=== PATIENT | male | born 2000 | race Caucasian/White ===

== ENCOUNTER 2020-04-17 11:19 | Emergency (ER) | payer BC, SELFPAY ==
[2020-04-17 11:20] VITALS: BP 136/74; PULSE 49; RESP 14; TEMP 36.2; O2SAT 100; BMI 18.6
--- NOTE | 2020-04-17 11:22 | CT_ITS ---
STUDY: CT BRAIN WITHOUT CONTRAST REASON FOR EXAM: Male, 20 years old. Head injury, passed out today hitting top of head. RADIATION DOSAGE (If Supplied By Facility): CTDIvol = ( 44.99 ) mGy, DLP = ( 779.24 ) mGycm TECHNIQUE: Transaxial CT imaging of the brain was performed without administration of intravenous contrast material. Individualized dose optimization techniques were used for this CT. COMPARISON: No relevant priors. FINDINGS: Normal soft tissue structures. Normal calvarium. Normal size ventricles and extra-axial spaces for the patient''s age. Normal white matter tracts of the cerebral hemispheres. The right temporal horn is more prominent in the left. Normal basal ganglia and thalami. Normal brainstem. I suspect a small subdural hematoma of the cerebellar tentorium more prominent on the right side. There are no findings of an acute ischemic infarction. Normal visualized paranasal sinuses. CT/Brain/Head without Contrast IMPRESSION: Findings suggestive of a small cerebellar tentorial subdural hematoma. Asymmetry of the temporal horns where the right temporal horn is slightly prominent as compared to the left side. Electronically Signed: Buddy Pedroza, at 12:35 EDT , Service support ,
--- NOTE | 2020-04-17 11:22 | RAD_ITS ---
STUDY: X-RAY CHEST REASON FOR EXAM: Male, 20 years old. SYNCOPAL EPISODE TODAY TECHNIQUE: PA and lateral views of the chest. COMPARISON: Comparison is made with prior study of September 20, 2016. FINDINGS: EKG electrodes are seen. Hyperinflation. Lungs are clear. There is no demonstrated pleural abnormality. Normal size heart. Normal mediastinum and minda. Normal visualized pulmonary arteries. Normal visualized aortic arch and descending thoracic aorta. Normal visualized thoracic spine. Normal visualized ribs, clavicles, and shoulders. There is no demonstrated abnormality of the visualized soft tissue structures of the upper abdomen. RAD/Chest PA and Lateral IMPRESSION: Hyperinflation. Electronically Signed: Buddy Pedroza, at 12:37 EDT , Service support ,
--- NOTE | 2020-04-17 11:22 | EKG12_ITS ---
Test Reason : SYNCOPE Blood Pressure : / mmHG Vent. Rate : 053 BPM Atrial Rate : 053 BPM P-R Int : 166 ms QRS Dur : 098 ms QT Int : 412 ms P-R-T Axes : 039 062 067 degrees QTc Int : 386 ms Sinus bradycardia Otherwise normal ECG Confirmed by KEITH HUFFMAN, MOOSE ([id number]), graphic editor JEO PAEZ ([id number] on 04/18/2020 11:18:03 AM Referred By: JONATHON Confirmed By:MOOSE PARKER MD
[2020-04-17 11:25] VITALS: PULSE 51
--- NOTE | 2020-04-17 11:25 | ED.DCSUM_ITS ---
History of Present Illness Chief Complaint: Syncope Narrative: Patient presenting for evaluation secondary to a syncopal episode. Patient was helping with a surgical procedure on a cow when he reports that he started to have feelings of lightheadedness and hard beating of his heart. Patient states that he sat down, and the next thing that he remembers someone was waking him up from passing out on the ground. There are reports that when the patient passed out he hit his head. Patient denies that he had any sort of preceding chest pain or shortness of breath. Patient has no history of DVT or PE, no risk factors of such. Patient does have a history of a prior syncopal episode when he was a senior in high school. He was playing basketball at that time, and passed out. He had an extensive cardiac work-up including EKG, echocardiogram, Holter monitor, and it was determined that potentially this was from exercise- induced asthma and was not from a cardiac abnormality. Patient denies that he has been ill recently such as fever cough nausea or vomiting. Review of systems otherwise negative. Past Medical History - Allergies and Home Meds Allergies/Adverse Reactions: Allergies No Known Allergies Allergy (Verified 04/17/20 11:20) Primary Care Physician: Ignacio Dowd MD [NON-STAFF] - Prior records reviewed: Yes Past Medical History: None Smoking Status: Never smoker Review of Systems All systems negative except as indicated General: Denies: Chills, Fever, Sweats Eyes: Denies: Visual changes - bilaterally, Diplopia ENT: Denies: Rhinorrhea, Sore throat Cardiovascular: Reports: Palpitations, - - Syncope Respiratory: Denies: Dyspnea, Cough, Dyspnea on exertion Gastrointestinal: Denies: Abdominal pain, Nausea, Vomiting, Diarrhea, Melena, Hematochezia Genitourinary: Denies: Dysuria, Hematuria, Frequency Musculoskeletal: Denies: Back pain, Extremity Pain Skin: Denies: Rash, Wounds Neurological: Denies: Headache, Weakness, Numbness Physical Exam Vital Signs/Narrative: Vital Signs Temp Pulse Resp BP Pulse Ox 04/17/20 11:20 97.1 F L 49 L 14 136/74 H 100 Inital Vital Signs reviewed: Yes General: Well nourished, Well developed, No Acute Distress Head: Normocephalic, Atraumatic, - - Minimal tenderness to palpation over the left parietal portion of the scalp without any evidence of depressed skull f racture, hematoma, or skin injuries. Eyes: Perrl, EOMI ENT: Moist mucous membranes, No rhinorrhea Neck: Supple, Nontender Cardiovascular: Regular rate, Regular rhythm, No murmurs Respiratory: No distress, CTA bilaterally, Chest nontender Abdomen: Soft, Nontender, Nondistended, Normal bowel sounds Back: Nontender, Normal Inspection Extremities: No edema, - - Left elbow abrasion with minimal tenderness to palpation in that area. Normal flexion extension pronation and supination without pain or limitation. Skin: Normal color, No rash Neurological: Alert, Oriented x3, Cranial nerves II-XII grossly intact, Normal Strength, Normal Sensation Psychological: Normal affect, Normal Mood Diagnostic/Tx/Re-eval Clinical Impression(s) from Imaging Studies Brain CT 04/17/20 11:22 IMPRESSION: Findings suggestive of a small cerebellar tentorial subdural hematoma. Asymmetry of the temporal horns where the right temporal horn is slightly prominent as compared to the left side. Electronically Signed: Buddy Pedroza, at 12:35 EDT , Service support , Chest X-Ray 04/17/20 11:22 IMPRESSION: Hyperinflation. Electronically Signed: Buddy Pedroza, at 12:37 EDT , Service support , Laboratory Data 04/17/20 04/17/20 04/17/20 11:30 11:30 11:30 WBC 6.5 RBC 5.76 Hgb 15.8 Hct 50.6 MCV 87.8 MCH 27.4 MCHC 31.2 L RDW Std Deviation 39.8 RDW Coeff of Kiara 12.4 Plt Count 206 MPV 10.7 Immature Gran % (Auto) 0.500 Neut % (Auto) 71.1 H Lymph % (Auto) 19.5 Guthrie % (Auto) 8.0 Eos % (Auto) 0.6 Baso % (Auto) 0.3 Absolute Neuts (auto) 4.6 Absolute Lymphs (auto) 1.27 Nucleated RBC % 0 D-Dimer Quant (PE/DVT) <= 0.27 Sodium 137 Potassium 4.4 Chloride 101 Carbon Dioxide 31.0 Anion Gap 5 BUN 15 Creatinine 1.32 H Estim Creat Clear Calc 83.68 Est GFR (MDRD) Af Amer 87 Est GFR (MDRD) Non-Af 72 BUN/Creatinine Ratio 11.4 Glucose 100 Calcium 9.6 Troponin I < 0.015 - EKG Initial EKG Interpretation: - - Sinus bradycardia with a rate of 53. Isoelectric ST segments, normal T waves. Normal IA and QTc intervals. No evidence of WPW or Brugada morphology. - Medical Decision Making Patient presented secondary to a syncopal episode with a fall and a head injury. EKG found to be unremarkable. Lab work including d-dimer also unremarkable. Troponin negative. No evidence of electrolyte derangements. Due to the patient's fall and head injury CT imaging was performed. Radiology reports that there is a potential cerebellar tentorial subdural hematoma. Given this finding, believe the patient requires transfer to a trauma center. Family requested transfer to [facility]. I discussed this with the transfer line, patient was accepted, patient will be transferred by local ALS squad. He is awake and alert and protecting his airway I do not feel that he needs critical care or air transport at this time. - Critical Care Time Critical care time (excluding procedures): 30-74 minutes, Discussing w/Patient &/or Family/Fire Investigator, Discussing w/Consultants, Arranging Admission or Transfer ED Disposition - Plan for ED Patient: Disposition: [facility] Diagnosis: Subdural hematoma, Syncope
--- NOTE | 2020-04-17 11:26 | NURSING ---
NO OLD EKGS
[2020-04-17 11:44] LABS: Absolute Lymphocyte Count 1.27 X10^3/uL (0.83-4.51); Absolute Neutrophil Count 4.6 X10^3/uL (2.0-7.7); Basophil# 0.02 X10^3/uL; Basophil% 0.3 % (0-1); Eosinophil# 0.04 X10^3/uL; Eosinophils% 0.6 % (0-5); Hematocrit 50.6 % (40-54); Hemoglobin 15.8 g/dL (13.0-16.5); Lymphocyte # 1.27 X10^3/ul (4.0); Lymphocyte % 19.5 % (19-41); Mean Corp Hgb Conc 31.2 g/dL (32-36); Mean Corpuscular Hgb 27.4 pg (27.0-32.0); Mean Corpuscular Volume 87.8 fL (80-94); Mean Platelet Vol. 10.7 fl (6.2-12.0); Monocyte# 0.52 X10^3/uL; NRBC Flagged by Analyzer 0 % (0-5); Neutrophil # 4.63 X10^3/uL (2.7-7.7); Neutrophil % 71.1 % (47-70); Platelet Count 206 K/mm3 (150-450); RBC Distribution Width CV 12.4 % (11.6-14.6); RBC Distribution Width SD 39.8 fl (35.1-43.9); Red Blood Count 5.76 M/mm3 (4.6-6.2); White Blood Count 6.5 K/mm3 (4.4-11.0)
[2020-04-17 12:01] LABS: Anion Gap 5 (5-15); BUN 15 mg/dL (7-18); BUN/Creat Ratio 11.4 RATIO (10-20); Calcium,Total 9.6 mg/dL (8.5-10.1); Chloride 101 mmol/L (98-107); Creatinine, Serum 1.32 mg/dL (0.70-1.30); EST Glomerular Filtration Rate 72 mL/min (>60); Est Glom Filt Rate - Afr Amer 87 mL/min (>60); Estimated Creatinine Clearance 83.68 ml/min; Glucose 100 mg/dL (74-106); Potassium 4.4 mmol/L (3.5-5.1); Sodium Level 137 mmol/L (136-145)
[2020-04-17 12:03] LABS: D-Dimer Quantitative (DVT/PE) <= 0.27 FEU/ug/m (0.27-0.49)
--- NOTE | 2020-04-17 12:36 | NURSING ---
CALLED [facility] , TALKED TO TO JIM
[2020-04-17] MEDS: 0.9% Normal Saline 1,000 ML 1000 ML IV (12:47)
--- NOTE | 2020-04-17 12:54 | NURSING ---
CALLED [facility]. ETA IS 45 MIN
[2020-04-17 12:56] VITALS: BP 131/80; PULSE 61; RESP 14; TEMP 36.8; O2SAT 100
[2020-04-17 13:53] VITALS: BP 123/74; O2SAT 99
== END 2020-04-17 14:00 | disposition short-term general hospital (02) ==
PROVIDERS: Emergency Provider Emergency Medicine
DX: S06.5X9A Traumatic subdural hemorrhage with loss of consciousness of unspecified duration, initial encounter (principal); W19.XXXA Unspecified fall, initial encounter
CPT/HCPCS: 70450; 71046; 80048; 84484; 85025; 85379; 93005; 99285; J7030; A4216